=== PATIENT | female | born 1950 | race Caucasian/White ===

== ENCOUNTER 2018-01-31 13:19 | Emergency (ER) | payer OTHER ==
[~2018-01-31] VITALS: Ht 165.1 cm; Wt 93.4 kg
[2018-01-31 13:53] VITALS: Ht 165.1 cm; Wt 93.4 kg
[2018-01-31 17:11] VITALS: BP 121/97
== END 2018-01-31 17:11 | disposition home or self-care (01) ==
LOC: ED 13:19
DX: S60.221A Contusion of right hand, initial encounter (principal); S09.90XA Unspecified injury of head, initial encounter; M54.2 Cervicalgia; V89.2XXA Person injured in unspecified motor-vehicle accident, traffic, initial encounter; Y93.89 Activity, other specified; Y92.89 Other specified places as the place of occurrence of the external cause; Y99.8 Other external cause status